=== PATIENT | female | born 1950 | race Caucasian/White ===

== ENCOUNTER 2021-02-08 14:40 | Emergency (ER) | payer MEDICARE ==
[~2021-02-08] VITALS: Ht 175.3 cm; Wt 84.4 kg
[~2021-02-08 14:40] MED LIST: BASE B,POLYETHYL1 GM PO; CLOPIDOGREL75 MG PO; D3-501250 MCG PO; DOXYCYCLINE HY100 MG PO; FLAGYL500 MG IV; GLUCOPHAGE500 MG PO; LANTUS100 UNITS/ SUB-Q; LEVOTHYROXINE50 MC1 PO; LIPITOR10 MG PO; NEURONTIN400 MG PO; OXYCODONE HCL5 MG PO; PROBIOTIC1 EAC4 PO; SENNA PLUS TAB1 EACH PO; SENNA8.6 MG PO; VITAMIN B122500 MC1 PO
[2021-02-08] MEDS ORDERED: NOVOLOG100 UNIT/1 SUB-Q (15:22)
[2021-02-08] MEDS ORDERED: ASPIRIN325 MG PO (15:24)
[2021-02-08] MEDS ORDERED: ACETAMINOPHEN650 M2 PO (15:26)
[2021-02-08] MEDS ORDERED: DULCOLAX5 MG PO (15:27)
[2021-02-08] MEDS ORDERED: DULCOLAX10 MG PR (15:27)
[2021-02-08] MEDS ORDERED: NITROSTAT0.4 MG SL (15:28)
[2021-02-08] MEDS ORDERED: ROBAXIN-750750 MG PO (15:29)
[2021-02-08] MEDS ORDERED: ZOFRAN4 MG PO (15:30)
--- NOTE | 2021-02-10 19:03 | EKG ---
[facility] [address] [facility] [place] [address] Signed Normal sinus rhythm Prolonged QT Abnormal ECG No previous ECGs available Confirmed by JAQUAN CABALLERO DO ([id number]) on 02/10/2021 7:03:47 PM Electronically Signed By: JAQUAN CABALLERO DO 02/10/21 1903 PATIENT NAME: HUNG BRISENOKEVYN Pacheco Electrocardiogram DATE OF : 54 PHYSICIAN: JAQUAN CABALLERO DO REPORT #: [id number] REPORT IS CONFIDENTIAL AND NOT TO BE RELEASED WITHOUT AUTHORIZATION
== END 2021-02-08 16:56 | disposition home or self-care (01) ==
LOC: ED 14:40
DX: R11.2 Nausea with vomiting, unspecified (principal); R55 Syncope and collapse; Z88.2 Allergy status to sulfonamides; Z88.5 Allergy status to narcotic agent; Z88.8 Allergy status to other drugs, medicaments and biological substances; Z91.018 Allergy to other foods; Z91.013 Allergy to seafood; Z91.048 Other nonmedicinal substance allergy status; Z79.4 Long term (current) use of insulin; Z79.899 Other long term (current) drug therapy; Z79.82 Long term (current) use of aspirin
CPT/HCPCS: 80048; 85025; 93005; 93010; 96374; 99284-25

== ENCOUNTER 2021-04-10 20:16 | Inpatient (IN) | payer MEDICARE ==
[~2021-04-10] VITALS: Ht 175.3 cm; Wt 75.0 kg
[~2021-04-10 20:16] MED LIST changes: +ACETAMINOPHEN650 M2 PO; +ASPIRIN325 MG PO; -D3-501250 MCG PO; +DULCOLAX10 MG PR; +DULCOLAX5 MG PO; -LANTUS100 UNITS/ SUB-Q; +NITROSTAT0.4 MG SL; +NOVOLOG100 UNIT/1 SUB-Q; +ROBAXIN-750750 MG PO; +SEMGLEE100 UNIT/1 SUB-Q; +SENNA PLUS 8.61 EACH PO; -SENNA8.6 MG PO; +VITAMIN B-121000 MCG PO; -VITAMIN B122500 MC1 PO; +VITAMIN D350 MC3 PO; +ZOFRAN4 MG PO
--- OUTSIDE RECORDS SUMMARY | 2021-04-10 20:22 | XMS ---
PreManage Notification: JAVIER BRISENO Security Park Worker Events No recent Security Events currently on file CRITERIA MET - History of Sepsis CARE PROVIDERS [facility] [employer]. \F\ [employer] [facility] StanceISAI PHONE: [phone] [facility] 01/18/2021-Current PHONE: [phone] Aries has no Care Guidelines for this patient. EColt VISIT COUNT (12 MO.) [address] [place] TOTAL 5 NOTE: Visits indicate total known visits. ED/UCC VISIT TRACKING (12 MO.) 04/10/2021 20:16 [facility] TYPE: Emergency COMPLAINT: - VOMITING 02/08/2021 14:41 [facility] TYPE: Emergency COMPLAINT: - NV DIAGNOSES: - Syncope and collapse - Allergy to other foods - [facility] (current) use of insulin - Other nonmedicinal substance allergy status - Allergy status to narcotic agent - [facility] (current) use of aspirin - Allergy status to other drugs, medicaments and biological substances - Nausea with vomiting, unspecified - Allergy status to sulfonamides - Other director long term care (current) drug therapy - Allergy to seafood 01/17/2021 16:42 [facility] TYPE: Emergency COMPLAINT: - SKIN PROBLEM DIAGNOSES: - Allergy status to other drugs, medicaments and biological substances - Other nursing home (current) drug therapy - Bee allergy status - Allergy status to sulfonamides - terminal make up operator (current) use of insulin - Infection following a procedure, superficial incisional surgical site, initial encounter - Elevated white blood cell count, unspecified - Infection following a procedure, superficial incisional surgical site, initial encounter - Allergy status to narcotic agent - Other nonmedicinal substance allergy status - Elevated white blood cell count, unspecified 01/02/2021 09:08 [facility] TYPE: Emergency DIAGNOSES: - WEAKNESS - Sepsis, unspecified organism 11/12/2020 08:54 [facility] TYPE: Emergency DIAGNOSES: - Urinary tract infection, site not specified - Pyothorax without fistula - PELVIC PAIN INPATIENT VISIT TRACKING (12 MO.) 01/02/2021 09:08 [facility] OR TYPE: Medical Surgical DIAGNOSES: - Sepsis, unspecified organism [email or web address]
[2021-04-10] MEDS ORDERED: GLIPIZIDE XL2.5 MG PO (22:06)
[2021-04-11] MEDS ORDERED: METHOCARBAMOL500 MG PO (00:43)
--- NOTE | 2021-04-11 01:00 | NUR ---
pt ARRIVED TO FLOOR VIA STRETCH. 3PA TO BED. pt REPORTS SHE IS ABLE TO WALK WITH A WALKER AND BRACES TO BOTH LEGS, PERSONAL WHEELCHAIR AT BEDSIDE. pt REPORTED SHE LIVES IN A MOBILE HOME. HER MEDICATIONS WERE ACROSS THE TRAILER AND SHE WAS UNABLE TO GET TO THEM OR THE KITCHEN. HER HOME DOES NOT HAVE A HANDICAP ACCESSIBLE BATHROOM. THEY ARE WORKING ON THAT. SHE REPORTS CHANGING HER SELF. HER LABIA IS VERY RED FROM EXTENDED MOISTURE. pt USES [employer]ENEX AT HOME. ABLE TO ROLL SELF IN BED. REDNESS NOTED ON COCCYX WELL, BLANCHABLE. pt HAS A SCAR FROM HEALED PRESSURE INJURY THAT REQUIRED AN EXTENDED STAY AT [facility] AND A WOUND VAC. pt HAS A SON WHO LIVES IN [place] AND HER IS LIVING AT [facility]. SON ELÍAS IS TO MAKE DECISIONS IF SHE IS NOT ABLE TO. SON SUDHAKAR LIVES IN [facility]. pt DENIES ACUTE PAIN AT THIS TIME. HER LEFT KNEE HAS CHRONIC PAIN, pt STATES SHE TAKES TYLENOL FOR THAT, REFUSED AT THIS TIME. BRACES ARE REQUIRED BECAUSE HER KNEE IS "MUSH" AND WILL HYPEREXTEND. SHE DID STATE LATER SHE CANNOT STAND. REPORTED A FALL 3 WEEKS AGO. pt IS NAUSEOUS AT TIMES, PROVIDED HOT TEA. DISCUSSED NEXT AVAILABLE MEDICATION. pt STATES SHE IS OKAY AT THIS TIME. CALL LIGHT WITHIN REACH.
--- NOTE | 2021-04-11 02:55 | NUR ---
ROUNDED ON pt. RESTING IN BED WITH EYES CLOSED, RESPIRATIONS REGULAR AND UNLABORED. CALL LIGHT WITHIN REACH.
--- NOTE | 2021-04-11 04:20 | NUR ---
ROUNDED ON pt. RESTING IN BED WITH EYES CLOSED, RESPIRATIONS REGULAR AND UNLABORED. WOKE TO VOICE. ASSESSMENT DONE. pt DENIED NAUSEA AT THIS TIME. INCONT VOID X1. MARIELENA CARE DONE. GROIN HAD DECREASED REDNESS. NO REQUESTS AT THIS TIME. CALL LIGHT WITHIN REACH.
--- NOTE | 2021-04-11 07:20 | NUR ---
THIS LINK TRAINER ASSISTED PRIMARY RN FARIDEH CHANGED PATIENT'S INCONTINENT ATTENDS. BARRIED CREAM APPLIED. PATIENT REPOSITIONED. CALL LIGHT IN REACH.
--- NOTE | 2021-04-11 07:21 | NUR ---
REPORT RECIEVED FROM GAS ENGINE OPERATOR RNFARIDEH
--- NOTE | 2021-04-11 08:10 | NUR ---
MORNING ASSESSMENT DONE, WITHIN PARAMETERS. PATIENT CHANGED, ENDORSED THAT SHE WAS WET, MAKES NO ATTEMPT TO CALL WHEN SHE NEEDS TO VOID. REDNESS NOTED TO MARIELENA-AREA, DRY ATTENDS IN PLACE. IVF INFUSING, ROCEPHIN ABX THIS MORNING.
--- NOTE | 2021-04-11 10:00 | NUR ---
Pt discharged to home from [facility] on 04/05/21 and states she was unable to walk or push herself into the kitchen. Pt states she was unable to eat for 4 days as she could not get to the kitchen. Pt declines return to SNF. Discussed options of return to SNF, placement to Assisted living with pay out of pocket, or hiring a cg in the home and paying out of pockets. Called and spoke with Theodora Ramirez on patients phone with speaker. Theodora explained criterial for Medicaid and completed partial eval, pt has money in savings and would need to spend this down before she could qualify for Medicaid. We then returned to discussion of cg in the home if there is family who could assist. Pt does state her granddaughter offered to help. we discussed [facility] and cost of cg would be $28.50 per hour. Pt called her granddaughter and asked if she would be willing to work as her cg and she would pay her $15.00 hr she agrees. Granddaughter will start when pt discharges. Son will transport pt home. Pt denies other needs. Will work with PT and OT while hospitalized and would like HH PT/OT on dc. Dr. Pena notified and will order.
--- NOTE | 2021-04-11 10:51 | NUR ---
ASSEMBLER FISHING FLOATS IN TO SEE PATIENT.
--- NOTE | 2021-04-11 11:05 | NUR ---
PATIENT IS SALINE LOCKED.
--- NOTE | 2021-04-11 11:08 | NUR ---
PATIENT AWAKE IN BED, VITALS AND I&OS CHARTED. PATIENT REFUSED TRANSFER TO CHAIR THIS AM FOR BREAKFAST, WILL TRY AGAIN FOR LUNCH. FRESH DRIED BLOOD NOTED ON LEFT LARGE TOENAIL. AND 2ND TOE. RN NOTIFIED, CALL LIGHT IN REACH
--- NOTE | 2021-04-11 11:09 | NUR ---
PATIENT DOES HAVE A SMALL AMOUNT OF DRIED BLOOD ON LEFT GREAT TOE, APPEARS TO BE THE CUTICLE. PATIENT ENDORSES HAVING "STUBBED IT" AT HOME.
--- NOTE | 2021-04-11 11:30 | NUR ---
PATIENT UP TO WHEELCHAIR WITH P/T. LINEN CHANGED, BLANKET SET UP FOR PATIENT TO SIT IN FOR LUNCH. PERSONAL BELONGINGS AND CALL LIGHT NEARBY.
--- NOTE | 2021-04-11 11:59 | NUR ---
BLOOD GLUCOSE IS 196. LUNCH ORDERED FOR PATIENT. PATIENT IS OTHERWISE RESTING IN BED AND WATCHING TV.
--- NOTE | 2021-04-11 13:44 | NUR ---
PATIENT AWAKE IN BED, VITALS AND I&OS CHARTED. PATIENT STILL HAS NO URGE TO VOID. RN AWARE. CARTON OF MILK PROVIDED, CALL LIGHT IN REACH, NO OTHER NEEDS AT THIS TIME
--- NOTE | 2021-04-11 13:50 | NUR ---
It has been my pleasure to have a short visit with Jackie today. Upon arrival in the room Jackie was watching/listneing to something on her phone but was able to pause to visit with me. Jackie reports that she is happy with her care here in the hospital. She also added that "the food is very good". She denies pain at this time and reports that the nurses are meeting her patient care needs. When asked if her call light is being answered in a timely manner she reopted "Oh yes, they are right here when I call them, they are good." Jackie is awake and alert and answers questions appropriately. She denies questions or concerns at this time.
--- NOTE | 2021-04-11 16:12 | NUR ---
PATIENT IS RESTING IN BED, DENIES NEEDS AT THIS TIME.
--- NOTE | 2021-04-11 18:12 | NUR ---
PATIENT HAS SAT UP IN BED, ATE A PORTION OF HER DINNER, THEN GIVEN 1 UNIT OF SQ HUMALOG.
--- NOTE | 2021-04-11 19:29 | NUR ---
PATIENT UNCONTINENT OF URINE. NEW BRIEF PROVIDED.
--- NOTE | 2021-04-11 21:28 | NUR ---
vs done, i/o done, pt wants to get up to bsc when RN comes in for meds. no further assistance at this time.
--- NOTE | 2021-04-11 22:13 | NUR ---
awake, coop with assessments. no c/o sob. turned and repositoned, Incontinent of urine, changed, tolerated well, barrier cream applied. SL patent. bruising hands healing. tolerating fluids well. CBG 163 received 1 units ss Humalog and scheduled Lantus. call light at hands reach
--- NOTE | 2021-04-12 02:37 | NUR ---
RESATING, NO DISTRESS, EYES CLOSED. CALL LIGHT AND FLUIDS AT BEDSIDE
--- NOTE | 2021-04-12 05:01 | NUR ---
Pt has slept this shift, on room air, sl patent. incontinent of urine, attends inplace, no c/o pain. tolerating diet and fluids well. Pt turns self in bed, CBG 164,received ss insulin coverage. denies s/sx hypo/hyperglycemia. Pt looking forward to be dc'd home soon.
--- NOTE | 2021-04-12 05:51 | NUR ---
PT VS DONE, I/OS DONE, BRIEF CHANGED, BARRIER CREAM APPLIED, PT REPOSITIONED TO [facility]. CALL LIGHT WITHIN REACH, BED IN LOWEST POSITION. NO FURHTER ASSISTANCE NEEDED AT THIS TIME.
--- NOTE | 2021-04-12 07:10 | NUR ---
SHIFT REPORT FROM SAUD [place] INCLUDED: pt sometimes "difficult to communicate with" as the pt sometimes won't answer questions. pts VSS, and pt is anticipating DC to [facility] when MD orders DC. pt currently resting in bed, eyes closed, breathing even and unlabored, table and call light in reach.
--- NOTE | 2021-04-12 09:00 | NUR ---
MED PASS + ASSESSMENT + CBG pt working with occupational therapy at this time. pt up to bathroom at this time, with 1PA and wheelchair transfers. pt able to transfer herself to wheelchair with only SBA. Therapist educating pt as she coordinates safely from bed to toilet. pt assessment complete at this time, VSS. pt alert and mostly cooperative with cares, pt sometimes delays her answers. pt able to take all meds this morning without difficulty. pt is anticipating DC today to home, with her granddaughter as rehab department manager caregiver. pts CBG was 138, no insulin given per sliding scale orders. pt in bed at this time, table and call light in reach.
--- NOTE | 2021-04-12 09:30 | NUR ---
MD TO BEDSIDE Dr Pena to the bedside at this time. pt reports new dizziness and nausea to MD. pt reports that she has this happen intermittently "lately". pt had orthostatics done at [facility] as well, does not recall what they determined from them. MD ordered new IVF and orthostatics to be done at this time.
--- NOTE | 2021-04-12 10:30 | NUR ---
ROUNDING pt denies pain, nausea, and dizziness at this time. pt in bed, table and call light in reach.
--- NOTE | 2021-04-12 11:50 | NUR ---
RESPONDING TO CALL LIGHT pt is showing aggrivation about her IV pump beeping every time she bends her arm. pt is trying to get her tray ready for lunch and is tired of it. pt just getting her insulin and lunch, so IVF put on standby so she can bend her arms to feed herself. pt instructed to call once she is finished with her meal. pt verbalized understanding. table and call light in reach.
--- NOTE | 2021-04-12 12:00 | NUR ---
LUNCH + CBG pts CBG was 160, 1 unit given per sliding scale orders. pt able to take med without difficulty. pt is sitting up in bed, having lunch at this time. pt denies further needs at this time. table and call light in reach.
[2021-04-12] MEDS ORDERED: CRANBERRY450 M2 PO (12:50)
--- NOTE | 2021-04-12 12:53 | NUR ---
MED REC COMPLETE
--- NOTE | 2021-04-12 13:00 | NUR ---
ROUNDING pts fluids restarted at this time. pt denies pain, nausea, and further needs at this time. table and call light within reach.
--- NOTE | 2021-04-12 14:19 | NUR ---
PT ALERT, ORIENTED AND LAYING IN BED WATCHING TV.PT MENTIONED THAT THE LAST FEW MONTHS HAVE BEEN DIFFICULT, ESPECIALLY SINCE MOVING HERE LAST YEAR.SOME FAMILY ISSUES CAUSED [place] TO [place]OVE FROM [place]. 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 PT CONFESSED THAT SHE HAS LATELY FELT THAT GOD IS NOT PAYING ATTENTION TO HER. ALLOWED PT TO VENT, PT SHARED THAT HER ARIEL HAS SUSTAINED HER. HAD PRAYER WITH PT, LEFT G. POST AND ALSO A BLESSING. WILL FOLLOW
--- NOTE | 2021-04-12 14:30 | NUR ---
RESPONDING TO CALL LIGHT AT THIS TIME pts IV pump beeping. pt had bent her arm and occluded the line. Arm straightened, and IVF continued. pt denies pain, nausea, and further needs at this time. pt in bed, table and call light within reach.
--- NOTE | 2021-04-12 19:46 | NUR ---
awake, watching tv, no c/o pain. coop with assessment. sl RAC intact.
--- NOTE | 2021-04-12 21:28 | NUR ---
IN ROOM TO CO-SIGN INSLUIN. PT DENIES NEEDS AT THIS TIME. CALL LIGHT IS CLOSE.
--- NOTE | 2021-04-13 00:02 | NUR ---
RESTING, TURNS SELF IN BED, ON ROOM AIR, NO DISTRESS, CALL LIGHT AND FLUIDS AT BEDSIDE
--- NOTE | 2021-04-13 02:03 | NUR ---
resting, no distress, turns self in bed, call light at bedside
--- NOTE | 2021-04-13 05:51 | NUR ---
On room air, has slept all shift, no c/o pain, sob or n/v. Tolerating diet well. no c/o hypo/hyperglycemia. Does own CBG. Turns and repositions self in bed. Incontinent of urine, clean attends and barrier cream applied, Uses call light. Warm blanket given on requests and fresh water, no other requests.
--- NOTE | 2021-04-13 06:45 | NUR ---
IN TO ASSIST RN WITH VITALS, ATTENDS CHANGED, WARM BLANKET PROVIDED, NO FURTHER NEEDS AT THIS TIME
--- NOTE | 2021-04-13 07:16 | NUR ---
SHIFT REPORT FROM SAUD RN INCLUDED: pt had an uneventful evening. pt refused to get up to the bathroom through the night with the RN or CURB HOP. pt VSS, breathing normal, and alert and oriented during waking hours. pt currently resting in bed, eyes closed, breathing even and unlabored. table and call light within reach.
--- NOTE | 2021-04-13 08:16 | NUR ---
MED PASS + ASSESSMENT + CBG pt assessment complete, VSS. pt denies pain, nausea, and SOB. pt CBG was 121, no insulin given per sliding scale orders. pt refuses up to bathroom at this time, insists on "after breakfast". pt able to take all meds without difficulty. pt in fowlers position in bed, bed in lowest position, table and call light in reach, having breakfast at this time.
--- NOTE | 2021-04-13 09:30 | NUR ---
IV INFILTRATION + PATIENT TO STAND AT BEDSIDE pts IV ABX not able to infuse properly due to IV infiltration. IV site appears pale and no edema present, but IV site leaking a lot. pts IV infusion stopped. Pharmacy called, Isadora reports that the pt could safely take several different ABX that would be effective for her infection, the MD can decide on oral ABX at this time or not. pt requests oral ABX if possible. pt up to stand at this time with SBA and FWW. pt stood several times, for about a minute each time, pts briefs changed and fanta care done at this time as well. pt reports that she feels "so much better than yesterday" and feels that she is "probably fine to get out of here" but is also "not sure about going home today". pt reports that some dizziness has become "pretty normal" for her "since ". pt back to bed at this time. table and call light in reach.
--- NOTE | 2021-04-13 10:10 | NUR ---
Spoke with Jackie. She is feeling much better today. is transitioning pt to po antibiotics. Plan cont. for pt. dc to home with granddaughter as caregiver.
--- NOTE | 2021-04-13 10:15 | NUR ---
PER STAFF AT [facility] THEY HAVE NO AVAILABLE APPOINTMENTS AT THIS TIME.
--- NOTE | 2021-04-13 10:30 | NUR ---
ROUNDING pt up to shower with WARPER FIXER at this time. pt denies dizziness, pain, and nausea at this time. call light in reach.
--- NOTE | 2021-04-13 11:30 | NUR ---
CBG + LUNCH pts CBG was 165, 1 unit insulin given per sliding scale orders. pt able to get med without difficulty. pt given lunch tray at this time. table and call light in reach.
[2021-04-13] MEDS ORDERED: CIPROFLOXACIN500 MG PO (12:36)
--- NOTE | 2021-04-13 12:50 | NUR ---
MED PASS pt able to take newly ordered oral ABX as ordered without difficulty. pt denies further needs at this time. pt denies pain, nausea, and dizziness at this time. table and call light in reach.
--- NOTE | 2021-04-13 13:15 | NUR ---
ROUNDING pt resting in bed, eyes closed, breathing even and unlabored, table and call light in reach.
--- NOTE | 2021-04-13 14:14 | NUR ---
ASSESSMENT pt assessment complete at this time. pt denies pain, nausea, and dizziness at this time. pt denies further needs, refuses up to bathroom. pt in bed, table and call light in reach.
--- NOTE | 2021-04-13 15:00 | NUR ---
Chart faxed to [facility] as [facility] not currently taking pts. Pt will discharge tomorrow. Called and confirmed with Queenie, they did not receive the fax. Chart was refaxed at [phone].
--- NOTE | 2021-04-13 15:08 | NUR ---
PATIENT TOOK A SHOWER THIS MORNING. I STOOD BY ON THE OTHER SIDE OF CURTAIN IN CASE SHE NEEDED ANY HELP. I ASKED HER HOW SHE WAS DOING. GOT HER A NEW GOWN AND NEW PULL UPS. ALSO NEW SOCKS. PATIENT POKES HER OWN FINGER. WHEN DOING THE BLOOD SUGAR CHECKS.
--- NOTE | 2021-04-13 15:20 | NUR ---
ROUNDING pt working with physical therapist Carmelo at this time. table and call light in reach.
--- NOTE | 2021-04-13 16:23 | NUR ---
ROUNDING pt resting in bed at this time, eyes closed, breathing even and unlabored, table and call light in reach.
--- NOTE | 2021-04-13 17:13 | NUR ---
MED PASS + CBG in room for med pass, pt able to take med without difficulty. pts CBG was 133, no insulin given per sliding scale orders. pt denies pain, nausea, and dizziness at this time. table and call light in reach.
--- NOTE | 2021-04-13 22:10 | NUR ---
ASSESSMENT COMPLETE, SCHEDULED MEDS GIVEN (SEE EMAR). pt QUIET, BUT FULLY ORIENTED. pt REPORTS BEING WET AND NEEDS TO BE CHANGED, INCONTINENT OF LARGE VOLUME URINE, WITH HELP FROM CHRISTIANO HENNESSY, MARIELENA CARE DONE WITH DRY ATTENDS AND COMPELTE BED CHANGE ALSO DONE. BANDAID APPLIED TO LEFT BIG TOE, TOE NAIL MISSING, ptREPORTS IT RECENTLY FELL OFF. NO FURTHER NEEDS, CALL LIGHT IN REACH.
--- NOTE | 2021-04-13 22:20 | NUR ---
IN TO ASSIST RN WITH BED LINEN CHANGES, I&Os IN, ICE WATER AND WARM BLANKET PROVIDED, NO FURTHER NEEDS AT THIS TIME
--- NOTE | 2021-04-14 00:13 | NUR ---
pt RESTING IN BED WITH EYES CLOSED, RR EVEN AND UNLABORED. NO DISTRESS OR SIGNS OF PAIN NOTED, CALL LIGHT IN REACH.
--- NOTE | 2021-04-14 02:30 | NUR ---
IN TO CHECK ON PT, PT DENIES BEING INCT AT THIS TIME, ROOM TEMP LOWERED PER REQUUST, NO FURTHER NEEDS
--- NOTE | 2021-04-14 03:04 | NUR ---
pt RESTING IN BED WITH EYES CLOSED, RR EVEN AND UNLABORED. NO DISTRESS NOTED, CALL LIGHT IN REACH.
--- NOTE | 2021-04-14 05:07 | NUR ---
ASSESSMENT COMPLETE, VS AND I&O'S COMPLETE. pt INCONTINENT OF URINE, MARIELENA CARE DONE AND DRY ATTENDS IN PLACE WITH BARRIER CREME. SCHEDULED THYROID MED GIVEN, SEE EMAR. CALL LIGHT IN REACH.
--- NOTE | 2021-04-14 07:40 | NUR ---
SHIFT REPORT FROM TOMASA WASHINGTON INCLUDED: pt was incontinent several times last night. briefs on. pt able to rest most of the evening. no new concerns. pt currently resting in bed, eyes closed, breathing even and unlabored, table and call light in reach.
--- NOTE | 2021-04-14 08:30 | NUR ---
MED PASS + ASSESSMENT pt assessment complete, VSS. pt denies pain, nausea, and dizziness this morning. pt able to take all morning meds without difficulty. pt CBG was 134, no insulin given per sliding scale orders. pt sitting up in bed, having breakfast. table and call light in reach.
--- NOTE | 2021-04-14 09:00 | NUR ---
PATIENT READY FOR DC pt up to bathroom with SBA and FWW. pt moving much better than any days prior. pt denies dizziness and nausea with standing and movement. pt met with Isadora from pharmacy, all questions answered about her medications. pt verbalized understanding of DC instructions, medications, and follow up home health and care plans.
== END 2021-04-14 09:30 | disposition home health service (06) | DRG 690 ==
LOC: ED 20:16 → MS 20:17
PROVIDERS: ADMIT Student in an Organized Health Care Education/Training Program; ATTEND Student in an Organized Health Care Education/Training Program
DX: N39.0 Urinary tract infection, site not specified (principal); Z20.822 Contact with and (suspected) exposure to COVID-19; B96.1 Klebsiella pneumoniae [K. pneumoniae] as the cause of diseases classified elsewhere; E11.22 Type 2 diabetes mellitus with diabetic chronic kidney disease; N18.9 Chronic kidney disease, unspecified; E03.9 Hypothyroidism, unspecified; I25.10 Atherosclerotic heart disease of native coronary artery without angina pectoris; G89.29 Other chronic pain; Z88.2 Allergy status to sulfonamides; Z88.5 Allergy status to narcotic agent; Z79.899 Other long term (current) drug therapy; Z79.02 Long term (current) use of antithrombotics/antiplatelets; Z79.82 Long term (current) use of aspirin; Z79.4 Long term (current) use of insulin; Z79.891 Long term (current) use of opiate analgesic
CPT/HCPCS: 51701; 71045; 80048; 80053; 81001; 83605; 83735; 85025; 87040; 87077; 87088; 87186; 96367; 96372; 96376; 97110; 97162; 97165; 97530; 99285-25; C9803; G0378; J0696; J1650; J1815; J2405; J3475; J7030; J7040; J7121; U0003